=== PATIENT | female | born 1995 | race Asian ===

== ENCOUNTER 2020-04-01 21:50 | Emergency (ER) | payer BC ==
--- NOTE | 2020-04-02 01:23 | ER Document Report ---
ED GI/ - General Chief Complaint: Vaginal Bleeding Stated Complaint: MISCARRIAGE AT 12 WEEKS Time Seen by Provider: 04/02/20 01:01 Primary Care Provider: [facility] [Provider Group] - Follow up as needed Mode of Arrival: Ambulatory Information source: Patient Notes: 24-year-old female presented to ED for vaginal bleeding pelvic cramping. She states she was diagnosed with miscarriage in [place]. She is supposed to be 12 weeks . She states she was given medication to use to pass the fetus but she started with the bleeding and cramping and on and has not used the medication as yet. She states she is also passed a large amount of tissue tonight. She states she is moved from [place] now to [place] so she does not have a follow-up appointment with her PROFESSOR OF KINESIOLOGY. Patient is alert oriented respirations regular nonlabored speaking in full sentences. She is 1 para 0. States she is not sure what her blood type was. Constitutional: Negative for fever. HENT: Negative for sore throat. Eyes: Negative for visual changes. Cardiovascular: Negative for chest pain. Respiratory: Negative for shortness of breath. Gastrointestinal: Negative for abdominal pain, vomiting or diarrhea. Genitourinary: Pelvic pain vaginal bleeding in the process of a miscarriage. 1 para 0 Musculoskeletal: Negative for back pain. Skin: Negative for rash. Neurological: Negative for headaches, weakness or numbness. 10 point ROS negative except as marked above and in HPI. VITAL SIGNS: Within normal limits. GENERAL: No acute distress, non-toxic appearance. HEAD: Normal with no signs of head trauma. EYES: PERRLA, EOMI, conjunctiva normal, no discharge. EARS: Hearing grossly intact. NOSE: Normal. THROAT: Oropharynx is normal. NECK: Normal range of motion, no tenderness, supple, no lymphadenopathy, No adenopathy, no JVD. CHEST: Clear breath sounds bilaterally. No wheezes, rales, or rhonchi. ABDOMEN: Normal and soft with tender to pelvic area, no masses or pulsatile masses. GASTROINTESTINAL: Bowel sounds normal GENITOURINARY: Patient has moderate amount of bleeding from the cervix on pelvic exam. Patient is in the process of of a miscarriage. She did pass a fibrous mass in the commode earlier during to the patient and . Her pelvic exam was completed with the assistance Jemahrea Highland RN. LYMPATHTIC: No lymphadenopathy noted. MUSCULOSKELETAL: Good range of motion of all major joints. Extremities without clubbing, cyanosis or edema. NEUROLOGICAL: Alert and oriented x 3. No focal sensory or strength deficits. Speech normal. Follows commands appropriately. PSYCHIATRIC: Normal Affect, judgement and mood. SKIN: Normal appearance with no rashes or lesions. - HPI Patient complains to provider of: Pelvic pain, - States she was diagnosed with a incomplete miscarriage in [place], Vaginal bleeding Timing/Duration: Persistent Quality of pain: Cramping Severity at maximum: Mild Severity in ED: Mild Pain Level: 2 Context: Location: Pelvis Vaginal bleeding (Compared to normal period): Heavier Menstrual period history: Associated symptoms: Other - Pelvic tenderness Exacerbated by: Movement Relieved by: Denies Similar symptoms previously: Yes Recently seen / treated by doctor: Yes - Related Data Allergies/Adverse Reactions: No Known Allergies Allergy (Verified 04/01/20 22:00) Past Medical History - General Information source: Patient - Social History Smoking Status: Never Smoker Frequency of alcohol use: None Drug Abuse: None Occupation: [employer] Lives with: Family Family History: Reviewed & Not Pertinent Patient has suicidal ideation: No Patient has homicidal ideation: No - Past Medical History Cardiac Medical History: Reports: None Pulmonary Medical History: Reports: None EENT Medical History: Reports: None Neurological Medical History: Reports: None Endocrine Medical History: Reports: None Renal/ Medical History: Reports: None Malignancy Medical History: Reports: None GI Medical History: Reports: None Musculoskeletal Medical History: Reports None Skin Medical History: Reports None Psychiatric Medical History: Reports: None Traumatic Medical History: Reports: None Infectious Medical History: Reports: None Past Surgical History: Reports: Hx Appendectomy Physical Exam - Vital signs Vitals: Temp Pulse Resp BP Pulse Ox 98.9 F 83 18 119/80 98 04/01/20 22:01 04/01/20 22:01 04/01/20 22:01 04/01/20 22:01 04/01/20 22:01 Course - Re-evaluation Re-evalutation: 04/02/20 08:59 Lab and ultrasound report discussed with patient and and written report of labs and ultrasound given to patient. Patient was recommended to follow-up with women's health care for her miscarriage with retained products still. She was informed that she would probably still have bleeding for several more days. She was treated with Toradol in the emergency room for her discomfort. Patient and verbalized understanding and agreement with treatment plan and patient was discharged home. - Vital Signs Vital signs: Temp Pulse Resp BP Pulse Ox 97.7 F 61 16 112/75 100 04/02/20 04:19 04/02/20 04:19 04/02/20 04:19 04/02/20 04:19 04/02/20 04:19 - Laboratory Results Result Diagrams: 04/01/20 22:07 04/01/20 22:07 Laboratory Results Interpreted: 04/01/20 04/01/20 04/02/20 22:07 22:07 00:35 WBC 11.2 H Beta HCG, Quant 1490.40 H Urine Protein 100 H Urine Ketones TRACE H Urine Blood LARGE H Ur Leukocyte Esterase SMALL H Critical Laboratory Results Reviewed: No Critical Results - Radiology Results Critical Radiology Results Reviewed: No Critical Results Discharge - Discharge Clinical Impression: Incomplete miscarriage Condition: Stable Disposition: HOME, SELF-CARE Additional Instructions: You were seen today for vaginal bleeding and pelvic pain while miscarrying your 12-week fetus. I have given you a copy of the ultrasound report and your lab work. This shows products of conception in the uterus. Please call the PROFESSOR OF KINESIOLOGY in the morning give them your lab values and it we have asked you to follow-up with PROFESSOR OF KINESIOLOGY to ensure completion of this miscarriage. Ibuprofen Ibuprofen is an excellent, safe drug for pain control. In addition, it has potent antiinflammatory effects which are beneficial, especially in the treatment of injuries, arthritis, or tendonitis. It's best to take ibuprofen with food. Persons with ulcer disease or allergy to aspirin should notify their physician of this before taking ibuprofen. Take the medication exactly as prescribed. Don't take additional doses unless instructed to do so by your doctor. If you develop wheezing, shortness of breath, hives, faintness, stomach pain, vomiting, or dark black stools, return for re-evaluation at once. You will need complete pelvic rest until following up with the PROFESSOR OF KINESIOLOGY this means no sexual intercourse, no douches, and no tampons. Toradol Injection You have been given an injection of ketorolac tromethamine (Toradol). This is an excellent, safe drug for pain control. It also has potent antiinflammatory action. You should have significant pain relief within about one hour. Toradol is not addicting and is non-sedating. It does not interfere with driving or work. Call or return if you develop itching, hives, shortness of breath, or rash. FOLLOW-UP CARE: If you have been referred to a physician for follow-up care, call the physicians office for an appointment as you were instructed or within the next two days. If you experience worsening or a significant change in your symptoms (very heavy bleeding with large clots of blood, passage of tissue, more severe abdominal / pelvic pain or cramping, feeling faint or severe weakness, fever, etc.), notify the physician immediately or return to the Emergency Department at any time for re-evaluation. OBSTETRIC-GYNECOLOGIC (OB-RETAIL [employer]) PHYSICIANS IN [place]: [facility] [address] [place] [address] [phone] Referrals: [facility] [Provider Group] - Follow up as needed
[2020-04-02 01:32] LABS: ALBUMIN 4.4 g/dL (3.5-5.0); ALKALINE PHOSPHATASE 71 U/L (38-126); ANION GAP 9 (5-19); ASPARTATE AMINO TRANSFERASE 28 U/L (14-36); BILIRUBIN,DIRECT 0.2 mg/dL (0.0-0.4); BILIRUBIN,TOTAL 0.4 mg/dL (0.2-1.3); BLOOD UREA NITROGEN 11 mg/dL (7-20); CALCIUM 9.5 mg/dL (8.4-10.2); CARBON DIOXIDE 25 mmol/L (22-30); CHLORIDE 104 mmol/L (98-107); GLUCOSE 108 mg/dL (75-110); POTASSIUM 3.7 mmol/L (3.6-5.0); TOTAL PROTEIN 7.6 g/dL (6.3-8.2)
[2020-04-02 01:43] LABS: ABSOLUTE LYMPHOCYTES (AUTO) 2.2 10^3/uL (0.5-4.7); ABSOLUTE MONOCYTES (AUTO) 0.7 10^3/uL (0.1-1.4); ABSOLUTE NEUT (AUTO) 8.2 10^3/uL (1.7-8.2); BASOPHILS % (AUTO) 0.4 % (0-2); EOSINOPHILS % (AUTO) 0.2 % (0-6); HEMATOCRIT 40.7 % (36.0-47.0); HEMOGLOBIN 13.8 g/dL (12.0-15.5); LYMPHOCYTES % (AUTO) 19.5 % (13-45); MEAN CORPUSCULAR HEMOGLOBIN 29.4 pg (27.0-33.4); MEAN CORPUSCULAR HGB CONC 33.9 g/dL (32.0-36.0); MEAN CORPUSCULAR VOLUME 87 fl (80-97); MONOCYTES % (AUTO) 6.4 % (3-13); PLATELET COUNT 319 10^3/uL (150-450); RED CELL DISTRIBUTION WIDTH 13.3 % (11.5-14.0); SEGMENTED NEUTROPHILS % (AUTO) 73.5 % (42-78); TOTAL CELLS COUNTED % (AUTO) 100 %; WHITE BLOOD COUNT 11.2 10^3/uL (4.0-10.5)
[2020-04-02 02:00] LABS: APPEARANCE,URINE CLOUDY; BILIRUBIN,URINE NEGATIVE (NEGATIVE); COLOR,URINE YELLOW; GLUCOSE, URINE NEGATIVE (NEGATIVE); KETONES,URINE TRACE mg/dL (NEGATIVE); LEUKOCYTE ESTERASE,URINE SMALL (NEGATIVE); NITRITE,URINE NEGATIVE (NEGATIVE); PROTEIN,URINE 100 mg/dL (NEGATIVE); URINE SPECIFIC GRAVITY 1.025; UROBILINOGEN,URINE NEGATIVE mg/dL (<2.0)
--- NOTE | 2020-04-02 02:57 | RADIOLOGY REPORT (SQ) ---
EXAM: Ultrasound OB level one < than 14 weeks CLINICAL DATA: 24 years Female pelvic pain in process of misscarriage increae pain, LMP: 01/07/2020, EGA: 12 weeks 2 days, DOMINGUEZ: 10/13/2020 TECHNICAL DATA: Sonographic imaging of the pelvis was performed endovaginally on 04/02/2020 at 1:53 AM COMPARISONS: None FINDINGS: The uterus is normal in size and configuration and measures: 7.5 x 4.7 x 5.7 cm. The cervix measures approximately 2.4 cm in length. The endometrial echo complex is heterogeneous in echogenicity. There is a small irregular area of decreased echogenicity within the endometrial canal in the region of the fundus. There is no evidence of a yolk sac or pole. This may represent an abnormal gestational sac. The technologist noted echogenic tissue moving throughout the endometrial canal during the examination. The right ovary is grossly normal in size, shape and echogenicity and measures: 3.1 x 2.1 x 1.5 cm. There is normal color Doppler flow to the right ovary. There are no right adnexal mass lesions.. The left ovary is grossly normal in size, shape and echogenicity and measures: 2.4 x 1.7 x 1.3 cm. There is color Doppler flow to the left ovary. There are no left adnexal mass lesions.. There is no free fluid in the pelvis. IMPRESSION: 1. Complex, heterogeneous endometrial echo complex without evidence of a normal intrauterine gestational sac. There is a small irregular area of decreased echogenicity in the endometrial canal in the region of the fundus which could represent an abnormal gestational sac. No yolk sac or pole is identified. 2. Grossly normal sonographic evaluation of the ovaries. No complex adnexal mass lesion is identified.
[2020-04-02] MEDS ORDERED: KETOROLAC TROMETHAMINE INJ/PF 30 MG/1 ML SDV IV ONE (03:21)
[2020-04-02 04:20] VITALS: BP 112/75
== END 2020-04-02 04:19 | disposition home or self-care (01) ==
LOC: ER 21:50
DX: O03.4 Incomplete spontaneous abortion without complication (principal); R10.2 Pelvic and perineal pain
CPT/HCPCS: 99285; 96374; 86900; 86901; 36415; 87086; 84702; 85025; 87088; 80053; 81001; 76817; J1885; 87186